=== PATIENT | female | born 1955 | race African-American/Black ===

== ENCOUNTER → 2017-05-09 | Outpatient (CLI) | payer OTHER ==
[2016-02-05 11:00] VITALS: BP 123/76
[~2017-05-09] MED LIST: ASPI-482 PO; ATORVASTATIN PO; CARV3.12 PO; CINN1CAP2 PO; LANTUS SQ; LIRA0.6P2 SQ; LISI-338 PO; MULT1TAB6 PO; PRAS10TA9 PO; PROTANDIM PO; SAXA5TAB PO
[2017-05-09 07:53] LABS: ALBUMIN 3.5 g/dL (3.4-5.0); ALBUMIN/GLOBULIN RATIO 0.8 (1.0-1.7); CALCIUM 9.4 mg/dL (8.5-10.1); CREATININE 0.8 mg/dL (0.6-1.0); GFR 88.2; POTASSIUM 4.1 mmol/L (3.5-5.1); TOTAL BILIRUBIN 0.2 mg/dL (0.2-1.0)
[2017-05-09 07:54] LABS: CHOLESTEROL/HDL RATIO 2.9
== END | disposition home or self-care (01) ==
LOC: LAB 07:11
PROVIDERS: ATTEND Family Medicine
DX: E11.39 Type 2 diabetes mellitus with other diabetic ophthalmic complication (principal); E78.00 Pure hypercholesterolemia, unspecified
CPT/HCPCS: 36415; 80053; 80061; 83036

== ENCOUNTER → 2017-09-08 | Outpatient (CLI) | payer OTHER ==
[2016-02-05 11:00] VITALS: BP 123/76
--- NOTE | 2017-09-08 11:09 | CARD ---
APPROVED REPORT EXAM: Two-dimensional and M-mode echocardiogram with Doppler and color Doppler. INDICATION CAD 2D DIMENSIONS Left Atrium(2D)3.6 (1.6-4.0cm)IVSd1.2 (0.7-1.1cm) Aortic Root(2D)2.6 (2.0-3.7cm)LVDd4.3 (3.9-5.9cm) LVOT Diameter2.0 (1.8-2.4cm)PWd1.2 (0.7-1.1cm) LVDs2.9 (2.5-4.0cm)FS (%) 31.6 % SV49.4 mlLVEF(%)59.8 (>50%) Aortic Valve AoV Peak Gonzalez.117.6cm/sAoV VTI23.6cm AO Peak GR.5.5mmHgLVOT Peak Gonzalez.99.2cm/s AO Mean GR.3mmHgAVA (VMAX)2.59cm2 KARMA (VTI)2.20cm2 Mitral Valve MV E Aujsjyky55.6cm/sMV DECEL AVBS271hf MV A Brggkqyn75.8cm/sE/A Ratio0.5 Tricuspid Valve TR P. Xwtxszre782yc/sRAP [id number] TR Peak Gr.2bzDwDNQZ00nvYw LEFT VENTRICLE The left ventricle is normal size. Sigmoid septum noted. There is mild concentric left ventricular hy pertrophy. Left ventricle systolic function is normal. The Ejection Fraction is 55-60%. There is norm al LV segmental wall motion. Transmitral Doppler flow pattern is Grade I-abnormal relaxation pattern. RIGHT VENTRICLE The right ventricle is normal size. The right ventricular systolic function is normal. ATRIA The left atrium size is normal. The right atrium size is normal. The interatrial septum is intact wit h no evidence for an atrial septal defect or patent foramen ovale as noted on 2-D or Doppler imaging. AORTIC VALVE The aortic valve is calcified but opens well. Doppler and Color Flow revealed no significant aortic r egurgitation. There is no significant aortic valvular stenosis. MITRAL VALVE The mitral valve is calcified but opens well. There is no evidence of mitral valve prolapse. There is no mitral valve stenosis. Doppler and Color Flow revealed no mitral valve regurgitation noted. TRICUSPID VALVE The tricuspid valve is normal in structure and function. Doppler and Color Flow revealed trace to mil d tricuspid regurgitation. There is no pulmonary hypertension. The PA pressure was estimated at 10 mm Hg. There is no tricuspid valve stenosis. PULMONIC VALVE The pulmonary valve is normal in structure and function. Doppler and Color Flow revealed no pulmonic valvular regurgitation. There is no pulmonic valvular stenosis. GREAT VESSELS The aortic root is normal in size. The ascending aorta is normal in size. The IVC is normal in size a nd collapses >50% with inspiration. PERICARDIAL EFFUSION There is no pleural effusion. There is no evidence of significant pericardial effusion. Critical Notification Critical Value: No <Conclusion> Left ventricle systolic function is normal. The Ejection Fraction is 55-60%. There is normal LV segmental wall motion. Transmitral Doppler flow pattern is Grade I-abnormal relaxation pattern. Trace to mild tricuspid regurgitation. The PA pressure was estimated at 10 mmHg. There is no evidence of significant pericardial effusion.
== END | disposition home or self-care (01) ==
LOC: ECHO 09:54
PROVIDERS: ATTEND Internal Medicine Cardiovascular Disease
DX: I25.10 Atherosclerotic heart disease of native coronary artery without angina pectoris (principal); I51.7 Cardiomegaly
CPT/HCPCS: 93306

== ENCOUNTER → 2017-10-11 | Outpatient (CLI) | payer OTHER ==
[2016-02-05 11:00] VITALS: BP 123/76
[2017-10-11 07:42] LABS: ALBUMIN 3.8 g/dL (3.4-5.0); ALBUMIN/GLOBULIN RATIO 0.9 (1.0-1.7); CALCIUM 9.5 mg/dL (8.5-10.1); CREATININE 0.8 mg/dL (0.6-1.0); GFR 87.9; TOTAL BILIRUBIN 0.3 mg/dL (0.2-1.0); TOTAL PROTEIN 7.9 g/dL (6.4-8.2)
[2017-10-11 08:51] LABS: CHOLESTEROL/HDL RATIO 2.4
== END | disposition home or self-care (01) ==
LOC: LAB 07:13
PROVIDERS: ATTEND Family Medicine
DX: E78.00 Pure hypercholesterolemia, unspecified (principal)
CPT/HCPCS: 36415; 80053; 80061; 83036

== ENCOUNTER → 2017-12-21 | Day surgery (SDC) | payer OTHER ==
[~2017-12-21] MED LIST changes: -ASPI-482 PO; -ATORVASTATIN PO; -CARV3.12 PO; -CINN1CAP2 PO; -LANTUS SQ; +LIDOCAINE 1% PF 2 ML VIAL. ID; -LIRA0.6P2 SQ; -LISI-338 PO; +MIDAZOLAM HCL/PF 2 MG/2 ML VIAL. IV; -MULT1TAB6 PO; -PRAS10TA9 PO; +PROPOFOL 40 ML IV; -PROTANDIM PO; -SAXA5TAB PO; +fentaNYL PF VIAL 100 MCG/2 ML VIAL IV
[2017-12-21] MEDS: IV RINGERS,LACTATED 1000ML 1,000 ML IV ×2 (08:20)
[2017-12-21 08:28] LABS: POC GLUCOSE 97 mg/dL (70-99)
== END | disposition home or self-care (01) ==
LOC: ENDOS 07:55
DX: Z12.11 Encounter for screening for malignant neoplasm of colon (principal); K64.0 First degree hemorrhoids; K57.30 Diverticulosis of large intestine without perforation or abscess without bleeding; E78.00 Pure hypercholesterolemia, unspecified; I10 Essential (primary) hypertension; E11.9 Type 2 diabetes mellitus without complications; Z86.39 Personal history of other endocrine, nutritional and metabolic disease
CPT/HCPCS: 45378; 82962; J2704

== ENCOUNTER → 2018-05-30 | Outpatient (CLI) | payer OTHER ==
[2018-05-30 14:11] LABS: ALK PHOS 95 U/L (46-116); ALT (SGPT) 37 U/L (14-59); ANION GAP 12 (6-14); AST (SGOT) 26 U/L (15-37); BLOOD UREA NITROGEN 20 mg/dL (7-20); BUN/CREATININE RATIO 25 (6-20); CALCIUM 9.3 mg/dL (8.5-10.1); CARBON DIOXIDE 26 mmol/L (21-32); CHLORIDE 105 mmol/L (98-107); CHOLESTEROL 156 mg/dL (0-200); CREATININE 0.8 mg/dL (0.6-1.0); GFR 87.9; GLUCOSE 132 mg/dL (70-99); HDLC 54 mg/dL (40-60); LDLC 86 mg/dL (0-100); NON-HDL CHOLESTEROL 102 mg/dL (0-129); POTASSIUM 4.5 mmol/L (3.5-5.1); SODIUM 143 mmol/L (136-145); TOTAL BILIRUBIN 0.5 mg/dL (0.2-1.0); TOTAL PROTEIN 8.1 g/dL (6.4-8.2); TRIGLYCERIDES 80 mg/dL (0-150); VLDLC 16 mg/dL (0-40)
[2018-05-30 14:12] LABS: CHOLESTEROL/HDL RATIO 2.9
[2018-05-31 03:19] LABS: HEMOGLOBIN A1C 7.7 % (4.8-5.6)
== END | disposition home or self-care (01) ==
LOC: LAB 13:09
DX: E11.39 Type 2 diabetes mellitus with other diabetic ophthalmic complication (principal); E78.00 Pure hypercholesterolemia, unspecified
CPT/HCPCS: 36415; 80053; 80061; 83036

== ENCOUNTER → 2018-11-14 | Outpatient (CLI) | payer OTHER ==
[2017-12-21 09:52] VITALS: BP 132/84
[~2018-11-14] MED LIST changes: +ASPI-482 PO; +ATORVASTATIN PO; +CARV3.12 PO; +CINN1CAP2 PO; +INSU100I30 SQ; +LANTUS SQ; -LIDOCAINE 1% PF 2 ML VIAL. ID; +LIRA0.6P2 SQ; +LISI-338 PO; +METO-239 PO; -MIDAZOLAM HCL/PF 2 MG/2 ML VIAL. IV; +MULT1TAB6 PO; +PRAS10TA9 PO; -PROPOFOL 40 ML IV; +PROTANDIM PO; +SAXA5TAB PO; -fentaNYL PF VIAL 100 MCG/2 ML VIAL IV
[2018-11-14 11:03] LABS: ALBUMIN 3.8 g/dL (3.4-5.0); ALBUMIN/GLOBULIN RATIO 0.9 (1.0-1.7); CALCIUM 9.8 mg/dL (8.5-10.1); CREATININE 0.8 mg/dL (0.6-1.0); GFR 87.7; POTASSIUM 4.3 mmol/L (3.5-5.1); TOTAL BILIRUBIN 0.3 mg/dL (0.2-1.0); TOTAL PROTEIN 8.2 g/dL (6.4-8.2)
[2018-11-14 11:04] LABS: CHOLESTEROL/HDL RATIO 2.4
[2018-11-14 19:15] LABS: CREAT RD UR 112.6 mg/dL (Not Estab.); MICRO CREAT RATIO 6.9 mg/g creat (0.0-30.0); MICROALB RD UR 7.8 ug/mL (Not Estab.)
[2018-11-14 22:12] LABS: HEMOGLOBIN A1C 7.2 % (4.8-5.6)
== END | disposition home or self-care (01) ==
LOC: LAB 10:21
PROVIDERS: ATTEND Family Medicine
DX: E11.39 Type 2 diabetes mellitus with other diabetic ophthalmic complication (principal)
CPT/HCPCS: 36415; 80053; 80061; 82043; 82570; 83036

== ENCOUNTER → 2019-06-05 | Outpatient (CLI) | payer OTHER ==
[2017-12-21 09:52] VITALS: BP 132/84
[2019-06-05 12:36] LABS: ALBUMIN 3.9 g/dL (3.4-5.0); ALBUMIN/GLOBULIN RATIO 0.9 (1.0-1.7); CALCIUM 9.6 mg/dL (8.5-10.1); CREATININE 0.8 mg/dL (0.6-1.0); GFR 87.7; POTASSIUM 4.2 mmol/L (3.5-5.1); TOTAL BILIRUBIN 0.3 mg/dL (0.2-1.0); TOTAL PROTEIN 8.2 g/dL (6.4-8.2)
[2019-06-05 12:40] LABS: CHOLESTEROL/HDL RATIO 2.9
[2019-06-05 22:12] LABS: CREAT RD UR 128.1 mg/dL (Not Estab.); MICRO CREAT RATIO 4.1 mg/g creat (0.0-30.0); MICROALB RD UR 5.2 ug/mL (Not Estab.)
[2019-06-05 23:10] LABS: HEMOGLOBIN A1C 7.9 % (4.8-5.6)
== END | disposition home or self-care (01) ==
LOC: LAB 09:21
PROVIDERS: ATTEND Family Medicine
DX: E11.39 Type 2 diabetes mellitus with other diabetic ophthalmic complication (principal); E78.00 Pure hypercholesterolemia, unspecified
CPT/HCPCS: 36415; 80053; 80061; 82043; 82570; 83036

== ENCOUNTER → 2020-04-09 | Outpatient (CLI) | payer OTHER ==
[2017-12-21 09:52] VITALS: BP 132/84
[2020-04-09 10:36] LABS: BASO # 0.1 x10^3/uL (0.0-0.2); BASO % 1 % (0-3); EOS # 0.1 x10^3/uL (0.0-0.7); EOS % 1 % (0-3); HEMATOCRIT 42.3 % (36.0-47.0); HEMOGLOBIN 13.9 g/dL (12.0-15.5); LYMPH # 2.4 x10^3/uL (1.0-4.8); LYMPH % 40 % (24-48); MEAN CORPUSCULAR HEMOGLOBIN 30 pg (25-35); MEAN CORPUSCULAR HGB CONC 33 g/dL (31-37); MEAN CORPUSCULAR VOLUME 91 fL (79-100); MONO # 0.3 x10^3/uL (0.0-1.1); MONO % 5 % (0-9); NEUT # 3.1 x10^3/uL (1.8-7.7); NEUT % 53 % (31-73); PLATELET COUNT 295 x10^3/uL (140-400); RED BLOOD COUNT 4.65 x10^6/uL (3.50-5.40); RED CELL DISTRIBUTION WIDTH 13.4 % (11.5-14.5)
[2020-04-09 11:39] LABS: ALBUMIN 3.7 g/dL (3.4-5.0); ALBUMIN/GLOBULIN RATIO 0.9 (1.0-1.7); CREATININE 1.1 mg/dL (0.6-1.0); GFR 60.5; POTASSIUM 4.6 mmol/L (3.5-5.1); TOTAL BILIRUBIN 0.2 mg/dL (0.2-1.0); TOTAL PROTEIN 7.7 g/dL (6.4-8.2)
[2020-04-09 11:43] LABS: CHOLESTEROL/HDL RATIO 2.3
[2020-04-09 21:07] LABS: CREAT RD UR 133.2 mg/dL (Not Estab.); MICROALB RD UR 7.9 ug/mL (Not Estab.)
[2020-04-10 00:07] LABS: HEMOGLOBIN A1C 8.3 % (4.8-5.6)
== END | disposition home or self-care (01) ==
LOC: LAB 08:08
PROVIDERS: ATTEND Family Medicine
DX: E11.39 Type 2 diabetes mellitus with other diabetic ophthalmic complication (principal)
CPT/HCPCS: 36415; 80053; 80061; 82043; 82570; 83036; 83721; 85025

== ENCOUNTER → 2021-05-05 | Outpatient (CLI) | payer OTHER ==
[2017-12-21 09:52] VITALS: BP 132/84
[~2021-05-05] MED LIST changes: -LISI-338 PO; +LISI-517 PO
[2021-05-05 10:23] LABS: ALBUMIN 3.8 g/dL (3.4-5.0); CALCIUM 9.3 mg/dL (8.5-10.1); CREATININE 1.2 mg/dL (0.6-1.0); GFR 54.6; TOTAL BILIRUBIN 0.2 mg/dL (0.2-1.0); TOTAL PROTEIN 7.8 g/dL (6.4-8.2)
== END ==
LOC: LAB 08:33
PROVIDERS: ATTEND Family Medicine
DX: E11.65 Type 2 diabetes mellitus with hyperglycemia (principal); E78.00 Pure hypercholesterolemia, unspecified
CPT/HCPCS: 36415; 80053; 80061; 83036

== ENCOUNTER → 2021-10-19 | Outpatient (CLI) | payer OTHER ==
[2017-12-21 09:52] VITALS: BP 132/84
[~2021-10-19] MED LIST changes: -LISI-517 PO; +LISI5TAB15 PO
== END ==
LOC: LAB 06:38
PROVIDERS: ATTEND Internal Medicine Pulmonary Disease
DX: U07.1 COVID-19 (principal)
CPT/HCPCS: U0003; U0005

== ENCOUNTER → 2021-12-24 | Outpatient (CLI) | payer OTHER ==
[2017-12-21 09:52] VITALS: BP 132/84
--- NOTE | 2021-12-24 12:20 | RAD ---
MR#: [id number] Date of Study: 12/24/2021 Ordering Physician: EMERALD VERDUGO, Referring Physician: FLORENCIA STARKS Tech: RT Galo (R) (N) APPROVED REPORT Test Type: Exercise Stress Nurse/Tech: Laura Truong RN Test Indications: CAD Cardiac History: Diabetes, Hypertension,PTCA Medications: See Electronic Medical Record Medical History: See Electronic Medical Record Resting ECG: SR Resting Heart Rate: 71 bpm Resting Blood Pressure: 136/67mmHg Pretest Chest Pain: No chest pain Nurse/Tech Notes S1,S2 and lungs clear to auscultation. Consent: The procedure was explained to the patient in lay terms. Informed consent was witnessed. Gideon eout was entered into [employer]. History and Stress Test performed by TALITA Shipman, ARRT (R) (N) Stress Symptoms No chest pain or symptoms. POST EXERCISE Reason for Termination: Reached target heart rate Target HR: Yes Max HR: 146 bpm 115% of Maximum Predicted HR: 130 bpm Exercise duration: 5:34 min:sec, 2 Stage Exercise capacity: 7.0METs Max Blood Pressure: 177/74mmHg Blood Pressure response to exercise: Normal blood pressure response during stress. Heart Rate response to exercise: WNL Chest Pain: No. Arrhythmia: No. ST Change: No. INTERPRETATION Stress EKG Conclusion: Baseline EKG showed sinus rhythm. No ischemic changes at peak stress. No arr hythmias. Imaging Protocol IMAGE PROTOCOL: Rest Tc-99m/stress Tc-99m 1 day Rest: Stress: Viability: Radiopharm.Tc99m LiblydpzvNv97z Sestamibi Kjye11pWq 32mCi Duration 15min. 15min. Img Date 12/24/2021 12/24/2021 Inj-Img Gmco73lsm. 60min. Rest Admin Site:IV - Left AntecubitalAdministrator:RT Galo (R)(N) Stress Admin Site: IV - Left AntecubitalAdministrator: RT Galo (R)(N) STRESS DATA End Diast. Vol.49.0mlAv. Heart Rate89.0bpm End Syst. Vol.2.0mlCO Index BSA0.0L/min Myocardial Qdii760.0gEject. Lcqursjb03.0% Stress Rates Pk. Fill Rate3.36EDV/secLVtime Pk. Fill 165.98msec Pk. Empty Rate5.76ESV/secLVtime Pk. Dnpgo485.39msec 1/3 Pk. Fill1.71EDV/sec Stress Scores Regional WT2.00Summed WT5.00 Regional WM0.00Summed WM0.00 Study quality was good. Left Ventricular size was Normal at Rest and Stress. Lung uptake was . Left Ventricular ejection fraction is 87%. The rest and stress images show normal perfusion, normal contraction and thickening. LV Perf. Quant 17 Seg. SSS0.00 17 Seg. SRS0.00 17 Seg. SDS0.00 Stress Defect Extent (% LAD)0.00Rest Defect Extent (% LAD)0.00Rev. Defect Extent (% LAD)0.00 Stress Defect Extent (% LCX) 0.00Rest Defect Extent (% LCX)3.80Rev. Defect Extent (% LCX)0.00 Stress Defect Extent (% RCA)0.00Rest Defect Extent (% RCA)0.00Rev. Defect Extent (% RCA)0.00 Stress Defect Extent (% SURAJ)0.00Rest Defect Extent (% SURAJ)1.30Rev. Defect Extent (% SURAJ)0.00 Conclusion 1. Regadenoson cardioisotope stress test did not show any evidence of ischemia or infarct. 2. Normal left ventricular systolic function with ejection fraction calculated at 87%. 3. Low risk for cardiac events. Signed by : Dimas Weaver, Electronically Approved : 12/24/2021 12:20:19
== END ==
LOC: NM 08:37
PROVIDERS: ATTEND Internal Medicine Cardiovascular Disease
DX: I25.10 Atherosclerotic heart disease of native coronary artery without angina pectoris (principal)
CPT/HCPCS: 78452; 93017; A9500